=== PATIENT | male | born 1960 | race Two or more races ===

== ENCOUNTER → 2017-06-16 | Outpatient (CLI) | payer OTHER ==
--- NOTE | 2017-06-17 04:38 | HKNOTE ---
DATE OF SERVICE: 06/16/2017 CHIEF COMPLAINT: Right knee pain. HISTORY OF PRESENT ILLNESS: This is a 57-year-old male complaining of chronic right knee pain. The pain has been progressively worsening over the last year. He has difficulty performing his activit ies of daily living. 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 He does not use any assistive devices. He takes Tylenol for pain control. He does not use any braces . He has had previous physical therapy and multiple injections of the right knee with no pain relie f. He has had a previous right knee arthroscopic surgery. He states that the pain is mostly on the inside of the knee. He denies any locking or catching. He has occasional instability. He denies any groin or back pain. GAIT: Antalgic gait, no use of assistive device. RIGHT KNEE EXAMINATION: Neutral alignment. Tender over the medial joint line. Nontender over the lateral joint line, 0 to 130 degrees range of motion, stable to varus and valgus stress. Negative L achman, negative anterior drawer, negative posterior drawer. 5/5 hamstrings, quadriceps, tibialis anterior, gastrocsoleus. IMAGING: X-rays right knee: X-rays of the right knee demonstrate medial joint space narrowing with [id number] arthritic changes, there are marginal osteophytes and subchondral sclerosis. There ar e peripheral osteophytes of the lateral compartment. MRI of the right knee. MRI of the right knee demonstrates a flap tear of the posterior horn of the medial meniscus with severe osteoarthritis of the medial compartment with full thickness chondral lo ss. There is moderate arthrosis of the lateral compartment, as well as the patellofemoral joint. IMPRESSION: A 57-year-old male with right knee osteoarthritis who has failed nonoperative managemen t. PLAN: I discussed treatment options with Mr. Gracia. He has failed nonoperative management inclu ding pain medications, physical therapy and injections. I discussed total knee arthroplasty with th e patient. We will request authorization for right total knee arthroplasty. He will follow up foll owing approval of authorization request. Dictated By: LIANET HOPPER/VALENTINO Conf#: [id number] DID#: [id number]
== END | disposition home or self-care (01) ==
LOC: HKI 13:32
PROVIDERS: ATTEND Orthopaedic Surgery Adult Reconstructive Orthopaedic Surgery
DX: M17.11 Unilateral primary osteoarthritis, right knee (principal)
CPT/HCPCS: G0463

== ENCOUNTER → 2017-09-21 | Outpatient (CLI) | END | disposition home or self-care (01) ==

== ENCOUNTER → 2017-11-09 | Outpatient (CLI) | END | disposition home or self-care (01) ==

== ENCOUNTER 2017-11-12 12:53 | Inpatient (IN) | END 2017-11-13 16:00 | disposition home health service (06) | DRG 470 ==

== ENCOUNTER → 2017-11-27 | Outpatient (CLI) | END | disposition home or self-care (01) ==

== ENCOUNTER 2017-12-13 21:11 | Emergency (ER) | END 2017-12-13 22:57 | disposition home or self-care (01) ==

== ENCOUNTER → 2017-12-28 | Outpatient (CLI) | END | disposition home or self-care (01) ==

== ENCOUNTER → 2018-01-12 | Outpatient (CLI) | END | disposition home or self-care (01) ==

== ENCOUNTER → 2018-03-01 | Outpatient (CLI) | END | disposition home or self-care (01) ==

== ENCOUNTER → 2018-05-03 | Outpatient (CLI) | END | disposition home or self-care (01) ==

== ENCOUNTER → 2018-10-12 | Outpatient (CLI) | payer OTHER ==
[~2018-10-12] MED LIST: AMLO-218 PO; BENA20TA4 PO; CEPH-443 PO; IBUP-1561 PO; IBUP800T48 PO
--- NOTE | 2018-10-12 14:47 | HKNOTE ---
DATE OF SERVICE: 10/12/2018 HISTORY OF PRESENT ILLNESS: Mr. Gracia is 1 year status post right total knee arthroplasty. He st ates that his pain is controlled. He does not use any pain medications or assistive devices. Overal l, he is satisfied with his surgery. DATE OF SURGERY: Right total knee arthroplasty, 11/12/2017. RIGHT KNEE EXAMINATION: Healed midline incision. A 0 to 120 degrees range of motion. Stable to meghana us, valgus stress. A 5/5 function of quadriceps, tibialis anterior, gastroc soleus. X-RAYS RIGHT KNEE: Three views of the right knee demonstrate the prosthesis to be in acceptable alig nment. There is lateral deviation of the patella. There is no dislocation, no loosening. IMPRESSION: A 58-year-old male 1 year status post right total knee arthroplasty. PLAN: We will request authorization for outpatient physical therapy. He was instructed on home exer cises. He will follow up in 6 months. Dictated By: LIANET HOPPER/VALENTINO Conf#: [id number] DID#: [id number]
--- NOTE | 2018-10-14 07:14 | RADRPT ---
PROCEDURE: Right knee series CLINICAL INDICATION: Pain TECHNIQUE: AP and lateral weightbearing and sunrise views were obtained of the right knee. COMPARISON: Right knee series 05/03/2018 FINDINGS: There is a total right knee prosthesis in place without fracture or loosening. There is mild lateral patellar subluxation. Tiny right suprapatellar knee joint effusion. No focal bony blastic or lytic le sions. Soft tissues are otherwise unremarkable. IMPRESSION: 1. The right knee prosthesis in place without fracture or loosening. 2. Mild lateral patellar subluxation. 3. Tiny right suprapatellar knee joint effusion. RPTAT:AAJJ Physician Donn Date Time Electronically viewed and signed by Physician Donn on 10/14/2018 07:13 /
== END | disposition home or self-care (01) ==
LOC: HKI 12:51
PROVIDERS: ATTEND Orthopaedic Surgery Adult Reconstructive Orthopaedic Surgery
DX: Z09 Encounter for follow-up examination after completed treatment for conditions other than malignant neoplasm (principal); Z96.651 Presence of right artificial knee joint
CPT/HCPCS: 73562; Z7500; G0463

== ENCOUNTER 2018-11-06 12:47 | Emergency (ER) | payer OTHER ==
[~2018-11-06] VITALS: Ht 177.8 cm; Wt 95.1 kg
[2018-11-06 13:01] VITALS: BP 163/88; PULSE 86; RESP 20; Ht 177.8 cm; Wt 95.1 kg
[2018-11-06] MEDS ORDERED: IBUPROFEN 600 MG TAB PO ONE (16:00)
[2018-11-06] MEDS ORDERED: IBUP-1542 PO (16:17)
--- NOTE | 2018-11-06 16:20 | ERD ---
ER Documentation Chief Complaint Chief Complaint L foot pain x 2 wks denies injury/fall HPI 58-year-old male presents with left foot pain for last 2 weeks. Denies any history of trauma. He does walk a lot at work. Denies any puncture wounds, weakness, deficits, redness, fevers. He has a history of prediabetes. ROS All systems reviewed and are negative except as per history of present illness. Medications Home Meds Active Scripts Ibuprofen* (Motrin*) 600 Mg Tab, 600 MG PO Q6, #20 TAB Prov:DRAKE JASON MD 11/06/18 Ibuprofen* (Motrin*) 800 Mg Tab, 800 MG PO Q6H PRN for PAIN AND OR ELEVATED TEMP, #30 TAB Prov:JULIO KOCH MD 07/31/18 Ibuprofen* (Motrin*) 400 Mg Tab, 400 MG PO Q8 for 5 Days, #15 TAB Prov:SCOTT PHILLIPS MD 12/13/17 Cephalexin* (Keflex*) 500 Mg Capsule, 500 MG PO TID for 7 Days, CAP Prov:SCOTT PHILLIPS MD 12/13/17 Reported Medications Benazepril Hcl* (Benazepril Hcl*) 20 Mg Tablet, 20 MG PO DAILY, #30 TAB 11/12/17 Amlodipine Besylate* (Norvasc*) 10 Mg Tablet, 10 MG PO DAILY, TAB 11/12/17 Allergies Allergies: Coded Allergies: No Known Allergies (Unverified Allergy, Unknown, 09/21/17) PMhx/Soc History of Surgery: Yes (debridment L toe, L tendon, RIGHT KNEE REPLACEMENT ) Anesthesia Reaction: No Hx Neurological Disorder: No Hx Respiratory Disorders: No Hx Cardiac Disorders: Yes (htn) Hx Psychiatric Problems: No Hx Miscellaneous Medical Probl: No Hx Alcohol Use: Yes Hx Substance Use: Yes Hx Tobacco Use: Yes Smoking Status: Never smoker FmHx Family History: No diabetes, No coronary disease, No other Physical Exam Vitals Vital Signs Date Temp Pulse Resp B/P (MAP) Pulse Ox O2 O2 Flow FiO2 Time Delivery Rate 11/06/18 98.7 86 20 163/88 99 13:01 (113) Physical Exam Const: No acute distress Head: Atraumatic Eyes: Normal Conjunctiva ENT: Normal External Ears, Nose and Mouth. Neck: Full range of motion. No meningismus. Resp: Clear to auscultation bilaterally Cardio: Regular rate and rhythm, no murmurs Abd: Soft, non tender, non distended. Normal bowel sounds Skin: No petechiae or rashes Back: No midline or flank tenderness Ext: No cyanosis, or edema. Tender left plantar surface of the left midfoot without erythema, warmth, deformities. No restricted range of motion or weakness. No signs of ischemia. Neur: Awake and alert Psych: Normal Mood and Affect Results 24 hrs Current Medications Medications Dose Sig/Berenice Start Time Status Last (Trade) Ordered Route PRN Stop Time Admin Dose Reason Admin Ibuprofen 600 mg ONCE ONCE 11/06/18 DC 11/06/18 (Motrin) PO 16:00 16:01 11/06/18 16:01 Procedures/MDM X-ray left foot 3V Interpreted by me: Bones: No fracture Joints: No dislocation Foreign body: None. Impression-normal left foot x-ray Patient was given ibuprofen for pain. Patient presents with signs and symptoms of left foot plantar fasciitis without signs of infection, ischemia, deficits, fracture, dislocation, foreign body. We discharged home with recommendations for arch support, stretching, primary care follow-up and return precautions. He is advised to evaluate his current shoes for possible cause of symptoms. He s hould return for fevers, redness, new worsening symptoms with primary care doctor as directed. Departure Diagnosis: Primary Impression: Foot pain Laterality: left Qualified Codes: M79.672 - Pain in left foot Condition: Stable Patient Instructions: Plantar Fasciitis Referrals: CHRISTIAN COLEY MD (PCP) Additional Instructions: X-ray appears normal. Likely plantar fasciitis. Recommend arch support, stretching, primary care follow-up. Recheck for fevers, redness, new worsening symptoms. DRAKE JASON MD Nov 06, 2018 16:20
== END 2018-11-06 16:41 | disposition home or self-care (01) ==
LOC: FTE 12:47
DX: M79.672 Pain in left foot (principal); I10 Essential (primary) hypertension; Z96.651 Presence of right artificial knee joint
CPT/HCPCS: 73630; Z7502; Z7610

== ENCOUNTER 2019-01-01 06:21 | Emergency (ER) | payer OTHER ==
[~2019-01-01] VITALS: Wt 78.0 kg
[~2019-01-01 06:21] MED LIST changes: +IBUP-1542 PO
[2019-01-01 06:24] VITALS: BP 160/63; PULSE 80; RESP 16
[2019-01-01] MEDS ORDERED: HYDR-4011 PO (07:48)
[2019-01-01] MEDS ORDERED: NAPR-985 PO (07:48)
--- NOTE | 2019-01-01 08:42 | ERD ---
ER Documentation Chief Complaint Chief Complaint LEFT FOOT PAIN FOR THE PAST MONTH NO TRAUMA. POSS FASCITIS HPI 58-year-old male presenting with pain to his left foot for the last month. P atient states that he has no traumatic injury and denies any numbness or tingling. His pain is around his whole foot and has no fevers. He has some mild swelling he has not taken medications. Denies other medical problems. NKDA. Surgical history denies. Social history denies ROS All systems reviewed and are negative except as per history of present illness. Medications Home Meds Active Scripts Naproxen* (Naprosyn*) 500 Mg Tablet, 500 MG PO BID PRN for PAIN AND/OR INFLAMMATION, #30 TAB Prov:LILLIAN IVY PA-C 01/01/19 Hydrocodone/Acetaminophen (Hickman 5-325 Tablet) 1 Each Tablet, 1 TAB PO Q6H PRN for PAIN, #7 TAB Prov:LILLIAN IVY PA-C 01/01/19 Ibuprofen* (Motrin*) 600 Mg Tab, 600 MG PO Q6, #20 TAB Prov:DRAKE JASON MD 11/06/18 Ibuprofen* (Motrin*) 800 Mg Tab, 800 MG PO Q6H PRN for PAIN AND OR ELEVATED TEMP, #30 TAB Prov:JULIO KOCH MD 07/31/18 Ibuprofen* (Motrin*) 400 Mg Tab, 400 MG PO Q8 for 5 Days, #15 TAB Prov:SCOTT PHILLIPS MD 12/13/17 Cephalexin* (Keflex*) 500 Mg Capsule, 500 MG PO TID for 7 Days, CAP Prov:SCOTT PHILLIPS MD 12/13/17 Reported Medications Benazepril Hcl* (Benazepril Hcl*) 20 Mg Tablet, 20 MG PO DAILY, #30 TAB 11/12/17 Amlodipine Besylate* (Norvasc*) 10 Mg Tablet, 10 MG PO DAILY, TAB 11/12/17 Allergies Allergies: Coded Allergies: No Known Allergies (Unverified Allergy, Unknown, 09/21/17) PMhx/Soc History of Surgery: Yes (RIGHT KNEE REPLACEMENT) Anesthesia Reaction: No Hx Neurological Disorder: No Hx Respiratory Disorders: No Hx Cardiac Disorders: Yes (HTN, HLD) Hx Psychiatric Problems: No Hx Alcohol Use: No Hx Substance Use: No Hx Tobacco Use: No Smoking Status: Never smoker FmHx Family History: No diabetes, No coronary disease, No other Physical Exam Vitals Vital Signs Date Temp Pulse Resp B/P (MAP) Pulse Ox O2 O2 Flow FiO2 Time Delivery Rate 01/01/19 96.8 80 16 160/63 99 06:24 (95) Physical Exam GENERAL: The patient is well-appearing, well-nourished, in no acute distress CHEST: Clear to auscultation bilaterally. There are no rales, wheezes or rhonchi. HEART: Regular rate and rhythm. No murmurs, clicks, rubs or gallops. EXTREMITIES: Equal pulses bilaterally. There is no peripheral clubbing, cyanosis or edema. No focal swelling or erythema. Full range of motion. Grossly neurovascularly intact. NEUROLOGIC: Alert and oriented. Cranial nerves II through XII intact. Motor strength in all 4 extremities with 5 out of 5 strength. Sensation grossly intact. Normal speech and gait. Procedures/MDM DIAGNOSTIC IMAGING REPORT Patient: NIKI VALERA : 1960 Age: 58 Sex: M MR #: [id number] DOS: 01/01/19 0642 Ordering MD: JOSIE IVY PA-C Location: [facility] Room/Bed: PROCEDURE: XR Foot. CLINICAL INDICATION: Pain TECHNIQUE: AP, lateral and oblique views of the left foot was obtained. The images were reviewed on a PACS workstation. COMPARISON: None. FINDINGS: The bones of the foot appear intact, with no evidence of fracture, dislocation, or subluxation. The joint spaces are preserved. The bone mineralization is normal. No significant soft tissue swelling is seen. There is a small posterior calcaneal spur. RPTAT: AA IMPRESSION: Small posterior calcaneal spur. MDM: 58-year-old male presenting with pain to left foot. I have low suspicion for acute fracture dislocation. I have low suspicion for infectious process. Patient's pain is likely associated with heel spur. Patient is discharged with supportive medications. Patient is told to follow-up with orthopedist. All questions answered at discharge Departure Diagnosis: Primary Impression: Heel spur Condition: Stable Patient Instructions: Heel Spur Additional Instructions: FOLLOW UP WITH YOUR PRIMARY CARE PHYSICIAN TOMORROW.Return to this facility if you are not improving as expected. LILLIAN IVY PA-C January 01, 2019 08:42
== END 2019-01-01 07:56 | disposition home or self-care (01) ==
LOC: FTE 06:21
DX: M77.32 Calcaneal spur, left foot (principal); I10 Essential (primary) hypertension; Z96.651 Presence of right artificial knee joint
CPT/HCPCS: 73630; Z7502

== ENCOUNTER → 2019-04-23 | Emergency (ER) | payer OTHER ==
[~2019-04-23] VITALS: Ht 177.8 cm; Wt 100.0 kg
[~2019-04-23] MED LIST changes: +HYDR-4011 PO; +HYDROCODONE/APAP (10/325) TAB PO ONE; +NAPR-985 PO
[2019-04-23 07:20] VITALS: BP 135/81; PULSE 80; RESP 16; Ht 177.8 cm; Wt 100.0 kg
== END | disposition home or self-care (01) ==
LOC: FTE 07:18
DX: M25.561 Pain in right knee (principal); M66.0 Rupture of popliteal cyst; I10 Essential (primary) hypertension; Z96.651 Presence of right artificial knee joint
CPT/HCPCS: 93971; Z7610